=== PATIENT | male | born 1955 | race African-American/Black ===

== ENCOUNTER 2020-08-01 08:33 | Outpatient (CLI) | payer MEDICARE, MEDICAID | END 2020-08-01 08:34 | disposition home or self-care (01) | LOC: CSHWCC 08:33 | PROVIDERS: ATTEND Nurse Practitioner Family | DX: E11.621 Type 2 diabetes mellitus with foot ulcer (principal); L97.516 Non-pressure chronic ulcer of other part of right foot with bone involvement without evidence of necrosis | CPT/HCPCS: 82962; 97139; G0277; 36416 ==

== ENCOUNTER 2020-08-06 07:47 | Outpatient (CLI) | payer MEDICARE, MEDICAID | END 2020-08-06 07:48 | disposition home or self-care (01) | LOC: CSHWCC 07:47 | PROVIDERS: ATTEND Nurse Practitioner Family | DX: E11.621 Type 2 diabetes mellitus with foot ulcer (principal); L97.516 Non-pressure chronic ulcer of other part of right foot with bone involvement without evidence of necrosis | CPT/HCPCS: 82962; 97139; G0277; 36416 ==

== ENCOUNTER 2020-08-13 09:50 | Outpatient (CLI) | payer MEDICARE, MEDICAID | END 2020-08-13 09:51 | disposition home or self-care (01) | LOC: CSHWCC 09:50 | PROVIDERS: ATTEND Nurse Practitioner Family | DX: E11.621 Type 2 diabetes mellitus with foot ulcer (principal); L97.516 Non-pressure chronic ulcer of other part of right foot with bone involvement without evidence of necrosis | CPT/HCPCS: 36416; G0277 ==

== ENCOUNTER 2020-08-22 08:08 | Outpatient (CLI) | payer MEDICARE, MEDICAID | END 2020-08-22 08:09 | disposition home or self-care (01) | LOC: CSHWCC 08:08 | PROVIDERS: ATTEND Nurse Practitioner Family | DX: E11.621 Type 2 diabetes mellitus with foot ulcer (principal); L97.516 Non-pressure chronic ulcer of other part of right foot with bone involvement without evidence of necrosis | CPT/HCPCS: 36416; G0277 ==

== ENCOUNTER 2021-05-08 09:51 | Outpatient (CLI) | payer MEDICARE, MEDICAID | END 2021-05-08 09:52 | disposition home or self-care (01) | LOC: CSHWCC 09:51 | PROVIDERS: ATTEND Nurse Practitioner Family | DX: T81.89XD Other complications of procedures, not elsewhere classified, subsequent encounter (principal); I87.2 Venous insufficiency (chronic) (peripheral); E11.621 Type 2 diabetes mellitus with foot ulcer; E11.622 Type 2 diabetes mellitus with other skin ulcer; L97.403 Non-pressure chronic ulcer of unspecified heel and midfoot with necrosis of muscle; L97.413 Non-pressure chronic ulcer of right heel and midfoot with necrosis of muscle; L97.422 Non-pressure chronic ulcer of left heel and midfoot with fat layer exposed; L97.512 Non-pressure chronic ulcer of other part of right foot with fat layer exposed; L97.516 Non-pressure chronic ulcer of other part of right foot with bone involvement without evidence of necrosis; L97.522 Non-pressure chronic ulcer of other part of left foot with fat layer exposed; L98.499 Non-pressure chronic ulcer of skin of other sites with unspecified severity; I70.268 Atherosclerosis of native arteries of extremities with gangrene, other extremity; R60.0 Localized edema; I12.0 Hypertensive chronic kidney disease with stage 5 chronic kidney disease or end stage renal disease; E11.22 Type 2 diabetes mellitus with diabetic chronic kidney disease; N18.6 End stage renal disease; I89.0 Lymphedema, not elsewhere classified; E11.51 Type 2 diabetes mellitus with diabetic peripheral angiopathy without gangrene; E78.2 Mixed hyperlipidemia; I70.25 Atherosclerosis of native arteries of other extremities with ulceration; E11.69 Type 2 diabetes mellitus with other specified complication; M86.671 Other chronic osteomyelitis, right ankle and foot; M86.672 Other chronic osteomyelitis, left ankle and foot; B96.89 Other specified bacterial agents as the cause of diseases classified elsewhere; L08.9 Local infection of the skin and subcutaneous tissue, unspecified; E66.01 Morbid (severe) obesity due to excess calories; Z89.411 Acquired absence of right great toe | CPT/HCPCS: 29581; 97139; G0463; 99213 ==

== ENCOUNTER 2021-05-29 11:14 | Outpatient (CLI) | payer MEDICARE | END 2021-05-29 11:15 | disposition home or self-care (01) | LOC: CSHWCC 11:14 | PROVIDERS: ATTEND Nurse Practitioner Family | DX: L89.304 Pressure ulcer of unspecified buttock, stage 4 (principal); L89.610 Pressure ulcer of right heel, unstageable; L89.93 Pressure ulcer of unspecified site, stage 3; S31.30XD Unspecified open wound of scrotum and testes, subsequent encounter; E11.621 Type 2 diabetes mellitus with foot ulcer; L97.509 Non-pressure chronic ulcer of other part of unspecified foot with unspecified severity; E78.2 Mixed hyperlipidemia; E66.01 Morbid (severe) obesity due to excess calories; R60.0 Localized edema; I12.0 Hypertensive chronic kidney disease with stage 5 chronic kidney disease or end stage renal disease; N18.6 End stage renal disease; I70.25 Atherosclerosis of native arteries of other extremities with ulceration; I87.2 Venous insufficiency (chronic) (peripheral); L08.9 Local infection of the skin and subcutaneous tissue, unspecified; B96.89 Other specified bacterial agents as the cause of diseases classified elsewhere; I89.0 Lymphedema, not elsewhere classified; M86.671 Other chronic osteomyelitis, right ankle and foot; M86.672 Other chronic osteomyelitis, left ankle and foot; Z89.411 Acquired absence of right great toe; Z91.89 Other specified personal risk factors, not elsewhere classified | CPT/HCPCS: 11042; 97139; G0463; 99214 ==

== ENCOUNTER 2021-06-12 12:11 | Outpatient (CLI) | payer MEDICARE | END 2021-06-12 12:12 | disposition home or self-care (01) | LOC: CSHWCC 12:11 | PROVIDERS: ATTEND Nurse Practitioner Family | DX: L89.304 Pressure ulcer of unspecified buttock, stage 4 (principal); L89.610 Pressure ulcer of right heel, unstageable; L89.93 Pressure ulcer of unspecified site, stage 3; I87.2 Venous insufficiency (chronic) (peripheral); E11.621 Type 2 diabetes mellitus with foot ulcer; L97.509 Non-pressure chronic ulcer of other part of unspecified foot with unspecified severity; E11.69 Type 2 diabetes mellitus with other specified complication; I12.0 Hypertensive chronic kidney disease with stage 5 chronic kidney disease or end stage renal disease; E11.22 Type 2 diabetes mellitus with diabetic chronic kidney disease; N18.6 End stage renal disease; E11.51 Type 2 diabetes mellitus with diabetic peripheral angiopathy without gangrene; I70.25 Atherosclerosis of native arteries of other extremities with ulceration; I89.0 Lymphedema, not elsewhere classified; S31.30XD Unspecified open wound of scrotum and testes, subsequent encounter; M86.671 Other chronic osteomyelitis, right ankle and foot; M86.672 Other chronic osteomyelitis, left ankle and foot; R60.0 Localized edema; L08.9 Local infection of the skin and subcutaneous tissue, unspecified; E78.2 Mixed hyperlipidemia; B96.89 Other specified bacterial agents as the cause of diseases classified elsewhere; E66.01 Morbid (severe) obesity due to excess calories; Z89.411 Acquired absence of right great toe; Z91.89 Other specified personal risk factors, not elsewhere classified ==

== ENCOUNTER 2021-07-24 10:15 | Outpatient (CLI) | payer MEDICARE, MEDICAID | END 2021-07-24 10:16 | disposition home or self-care (01) | LOC: CSHWCC 10:15 | PROVIDERS: ATTEND Nurse Practitioner Family | DX: L89.304 Pressure ulcer of unspecified buttock, stage 4 (principal); R60.0 Localized edema; L89.610 Pressure ulcer of right heel, unstageable; L89.93 Pressure ulcer of unspecified site, stage 3 | CPT/HCPCS: 99214; G0463 ==

== ENCOUNTER 2021-09-29 17:35 | Emergency (ER) | payer MEDICARE | END 2021-09-29 19:01 | disposition home or self-care (01) | LOC: CSHERS 17:35 | DX: Z43.3 Encounter for attention to colostomy (principal); I13.2 Hypertensive heart and chronic kidney disease with heart failure and with stage 5 chronic kidney disease, or end stage renal disease; I50.9 Heart failure, unspecified; N18.6 End stage renal disease; E11.22 Type 2 diabetes mellitus with diabetic chronic kidney disease; Z87.891 Personal history of nicotine dependence | CPT/HCPCS: 99283 ==

== ENCOUNTER 2021-10-02 09:03 | Outpatient (CLI) | payer MEDICARE | END 2021-10-02 09:04 | disposition home or self-care (01) | LOC: CSHWCC 09:03 | PROVIDERS: ATTEND Nurse Practitioner Family | DX: L89.304 Pressure ulcer of unspecified buttock, stage 4 (principal); L89.610 Pressure ulcer of right heel, unstageable; L89.93 Pressure ulcer of unspecified site, stage 3; R60.0 Localized edema | CPT/HCPCS: 11042; 29581; G0463; 99213 ==

== ENCOUNTER 2021-10-21 13:46 | Emergency (ER) | payer MEDICARE, OTHER | END 2021-10-21 14:44 | disposition home or self-care (01) | LOC: CSHERS 13:46 | DX: K94.01 Colostomy hemorrhage (principal); E78.5 Hyperlipidemia, unspecified; E11.9 Type 2 diabetes mellitus without complications; I11.0 Hypertensive heart disease with heart failure; I50.9 Heart failure, unspecified; E03.9 Hypothyroidism, unspecified; Z87.891 Personal history of nicotine dependence | CPT/HCPCS: 99283 ==

== ENCOUNTER 2021-10-23 09:58 | Outpatient (CLI) | payer MEDICARE | END 2021-10-23 09:59 | disposition home or self-care (01) | LOC: CSHWCC 09:58 | PROVIDERS: ATTEND Nurse Practitioner Family | DX: L89.304 Pressure ulcer of unspecified buttock, stage 4 (principal); L89.610 Pressure ulcer of right heel, unstageable; L89.93 Pressure ulcer of unspecified site, stage 3; R60.0 Localized edema ==

== ENCOUNTER 2021-11-19 10:35 | Inpatient (IN) | payer MEDICARE ==
[2021-11-19] MEDS ORDERED: Fentanyl 100 MCG/2 ML VIAL ONE ×2 (11:49→13:48)
[2021-11-19 11:57] LABS: #Eosinphils 0.2 10x3/uL (0.0-0.5); #Monocytes 1.1 10x3/uL (0.0-1.1); #Neutrophils 7.7 10x3/uL (1.5-8.4); %Basophils 0.2 % (0.0-2.0); %Eosinophils 1.5 % (0.0-6.0); %Lymphocytes 16.9 % (18.0-47.0); %Monocytes 9.8 % (0.0-10.0); %Neutrophils 71.2 % (40.0-75.0); Hemoglobin 12.1 g/dL (13.5-17.5); Mean Corpuscular HGB CONC 30.9 g/dL (32.0-36.0); Mean Corpuscular Hemoglobin 27.2 pg (27.0-33.0); Mean Corpuscular Volume 88.1 fl (81.2-95.1); Mean Platelet Volume 9.8 fl (7.4-10.4); Platelet Count 183 10x3/uL (150-450); RBC Distribution Width 14.6 % (11.5-14.5); Red Blood Cell (RBC) Count 4.45 10x6/uL (4.32-5.72); White Blood Cell (WBC) Count 10.8 10x3/uL (3.5-10.5)
[2021-11-19 12:13] LABS: ALT (SGPT) 17 U/L (8-55); AST (SGOT) 15 U/L (5-34); Albumin 3.6 g/dL (3.4-4.8); Alkaline Phosphatase 134 U/L (40-110); Anion Gap 17 mmol/L (10-20); BUN (Urea Nitrogen) 52 mg/dL (8.4-25.7); Bilirubin, Total 0.3 mg/dL (0.2-1.2); Calc. Creatinine Clearance 0 mL/min (70-130); Calcium 9.8 mg/dL (7.8-10.44); Carbon Dioxide 24 mmol/L (23-31); Chloride 99 mmol/L (98-107); Estimated GFR 8; Globulin 4.3 g/dL (2.4-3.5); Glucose 146 mg/dL (80-115); Potassium 4.7 mmol/L (3.5-5.1); Protein, Total 7.9 g/dL (5.8-8.1); Sodium 135 mmol/L (136-145)
[2021-11-19] MEDS ORDERED: Piperacillin/Tazobactam 4.5 GM VIAL ONE (14:07)
[2021-11-19] MEDS ORDERED: Ondansetron PF 4 MG/2 ML Vial IVP PRN (14:33)
[2021-11-19] MEDS ORDERED: Ondansetron ODT 4 MG TAB PO PRN (14:33)
[2021-11-19] MEDS ORDERED: Acetaminophen 325 MG TAB PO PRN (14:33)
[2021-11-19] MEDS ORDERED: Acetaminophen 650 MG Suppository PR PRN (14:33)
[2021-11-19] MEDS ORDERED: Heparin 10,000 UNITS/ 10 ML VIAL SLOW IVP PRN (14:36)
[2021-11-19] MEDS ORDERED: Vancomycin 1 GM in Premix Bag 1 BAG IVPB SCH (15:00)
[2021-11-19] MEDS ORDERED: Morphine 2 MG/ML VIAL SLOW IVP PRN (16:57)
[2021-11-19] MEDS ORDERED: Morphine 4 MG/ML VIAL SLOW IVP PRN (17:16)
[2021-11-19] MEDS: HYDROcodone/Acetaminophen 5/325 mg Tablet PO PRN (21:58)
[2021-11-19] MEDS: Atorvastatin Calcium 10 MG TAB PO SCH (23:38)
[2021-11-19] MEDS: rOPINIRole HCl 0.25 MG TAB PO SCH (23:38)
[2021-11-19] MEDS: Midodrine HCl 2.5 MG TAB PO SCH (23:38)
[2021-11-19] MEDS: Cefepime 1 GM in Sodium Chloride 0.9% 100 ML IVPB SCH (23:39)
[2021-11-19] MEDS: metroNIDAZOLE 500 MG in Premix Bag 1 BAG IVPB SCH (23:39)
[2021-11-20] MEDS ORDERED: Vancomycin HCl 1 GM in Sodium Chloride 0.9% 250 ML 250 ML IVPB SCH (01:00)
[2021-11-20 04:44] LABS: #Eosinphils 0.2 10x3/uL (0.0-0.5); #Monocytes 0.8 10x3/uL (0.0-1.1); #Neutrophils 5.7 10x3/uL (1.5-8.4); %Basophils 0.1 % (0.0-2.0); %Eosinophils 2.1 % (0.0-6.0); %Lymphocytes 21.6 % (18.0-47.0); %Monocytes 9.6 % (0.0-10.0); %Neutrophils 66.4 % (40.0-75.0); Hemoglobin 10.6 g/dL (13.5-17.5); Mean Platelet Volume 10.1 fl (7.4-10.4); Platelet Count 153 10x3/uL (150-450); RBC Distribution Width 14.6 % (11.5-14.5); Red Blood Cell (RBC) Count 3.93 10x6/uL (4.32-5.72); White Blood Cell (WBC) Count 8.6 10x3/uL (3.5-10.5)
[2021-11-20] MEDS: HYDROcodone/Acetaminophen 5/325 mg Tablet PO PRN ×3 (05:00→21:10)
[2021-11-20] MEDS: metroNIDAZOLE 500 MG in Premix Bag 1 BAG IVPB SCH ×2 (05:00→18:17)
[2021-11-20 05:19] LABS: Anion Gap 16 mmol/L (10-20); BUN (Urea Nitrogen) 21 mg/dL (8.4-25.7); Calc. Creatinine Clearance 31 mL/min (70-130); Calcium 8.5 mg/dL (7.8-10.44); Carbon Dioxide 25 mmol/L (23-31); Chloride 99 mmol/L (98-107); Estimated GFR 16; Glucose 95 mg/dL (80-115); Sodium 136 mmol/L (136-145)
[2021-11-20] MEDS: Levothyroxine Sodium 25 MCG TAB PO SCH (05:36)
[2021-11-20] MEDS: rOPINIRole HCl 0.25 MG TAB PO SCH ×2 (09:47→21:11)
[2021-11-20] MEDS: Midodrine HCl 2.5 MG TAB PO SCH ×3 (09:47→21:11)
[2021-11-20] MEDS: Lantus 1000 UNITS/10 ML VIAL SC SCH (09:47)
[2021-11-20] MEDS: Aspirin 81 mg Enteric Coated Tablet PO SCH (09:47)
[2021-11-20] MEDS: Cefepime 1 GM in Sodium Chloride 0.9% 100 ML IVPB SCH (18:18)
[2021-11-20] MEDS: Atorvastatin Calcium 10 MG TAB PO SCH (21:11)
[2021-11-21] MEDS: Cefepime 1 GM in Sodium Chloride 0.9% 100 ML IVPB SCH (00:44)
[2021-11-21 04:41] LABS: Anion Gap 15 mmol/L (10-20); BUN (Urea Nitrogen) 36 mg/dL (8.4-25.7); Calc. Creatinine Clearance 20 mL/min (70-130); Calcium 8.6 mg/dL (7.8-10.44); Carbon Dioxide 25 mmol/L (23-31); Chloride 101 mmol/L (98-107); Estimated GFR 10; Glucose 120 mg/dL (80-115); Potassium 4.1 mmol/L (3.5-5.1); Sodium 137 mmol/L (136-145)
[2021-11-21 04:45] LABS: #Eosinphils 0.2 10x3/uL (0.0-0.5); #Monocytes 0.9 10x3/uL (0.0-1.1); #Neutrophils 5.5 10x3/uL (1.5-8.4); %Basophils 0.2 % (0.0-2.0); %Eosinophils 2.6 % (0.0-6.0); %Lymphocytes 21.2 % (18.0-47.0); %Monocytes 10.5 % (0.0-10.0); %Neutrophils 65.3 % (40.0-75.0); Hemoglobin 10.9 g/dL (13.5-17.5); Mean Corpuscular Hemoglobin 27.3 pg (27.0-33.0); Mean Platelet Volume 9.6 fl (7.4-10.4); Platelet Count 180 10x3/uL (150-450); RBC Distribution Width 14.6 % (11.5-14.5); White Blood Cell (WBC) Count 8.5 10x3/uL (3.5-10.5)
[2021-11-21] MEDS: metroNIDAZOLE 500 MG in Premix Bag 1 BAG IVPB SCH ×2 (04:59→17:53)
[2021-11-21] MEDS: Levothyroxine Sodium 25 MCG TAB PO SCH (04:59)
[2021-11-21 07:43] LABS: Vancomycin, Random 13.7 ug/mL (See Comment)
[2021-11-21] MEDS: rOPINIRole HCl 0.25 MG TAB PO SCH ×2 (08:54→21:19)
[2021-11-21] MEDS: Midodrine HCl 2.5 MG TAB PO SCH ×3 (08:54→21:19)
[2021-11-21] MEDS: Aspirin 81 mg Enteric Coated Tablet PO SCH (08:54)
[2021-11-21 14:49] VITALS: BMI 39.5
[2021-11-21] MEDS: Lantus 1000 UNITS/10 ML VIAL SC SCH (16:29)
[2021-11-21] MEDS ORDERED: Vancomycin Dialysis Sliding Scale (Wt > 99) FS SCH (17:00)
[2021-11-21] MEDS ORDERED: Vancomycin HCl 1 GM in Sodium Chloride 0.9% 250 ML 250 ML IVPB SCH (17:00)
[2021-11-21] MEDS: Atorvastatin Calcium 10 MG TAB PO SCH (21:19)
[2021-11-21] MEDS: HYDROcodone/Acetaminophen 5/325 mg Tablet PO PRN (21:25)
[2021-11-22] MEDS: Cefepime 1 GM in Sodium Chloride 0.9% 100 ML IVPB SCH (00:37)
[2021-11-22 04:00] LABS: #Eosinphils 0.3 10x3/uL (0.0-0.5); #Monocytes 0.9 10x3/uL (0.0-1.1); #Neutrophils 5.2 10x3/uL (1.5-8.4); %Basophils 0.4 % (0.0-2.0); %Eosinophils 3.2 % (0.0-6.0); %Lymphocytes 22.2 % (18.0-47.0); %Monocytes 10.6 % (0.0-10.0); %Neutrophils 63.4 % (40.0-75.0); Hemoglobin 10.8 g/dL (13.5-17.5); Mean Corpuscular HGB CONC 30.9 g/dL (32.0-36.0); Mean Corpuscular Hemoglobin 27.1 pg (27.0-33.0); Mean Corpuscular Volume 87.7 fl (81.2-95.1); Mean Platelet Volume 9.8 fl (7.4-10.4); Platelet Count 207 10x3/uL (150-450); RBC Distribution Width 14.5 % (11.5-14.5); Red Blood Cell (RBC) Count 3.98 10x6/uL (4.32-5.72); White Blood Cell (WBC) Count 8.2 10x3/uL (3.5-10.5)
[2021-11-22] MEDS: metroNIDAZOLE 500 MG in Premix Bag 1 BAG IVPB SCH ×2 (04:28→16:24)
[2021-11-22 04:45] LABS: Anion Gap 16 mmol/L (10-20); BUN (Urea Nitrogen) 20 mg/dL (8.4-25.7); Calc. Creatinine Clearance 29 mL/min (70-130); Calcium 8.6 mg/dL (7.8-10.44); Carbon Dioxide 24 mmol/L (23-31); Chloride 102 mmol/L (98-107); Estimated GFR 15; Glucose 117 mg/dL (80-115); Potassium 4.2 mmol/L (3.5-5.1); Sodium 138 mmol/L (136-145)
[2021-11-22] MEDS: Levothyroxine Sodium 25 MCG TAB PO SCH (06:42)
[2021-11-22] MEDS: rOPINIRole HCl 0.25 MG TAB PO SCH ×2 (10:01→21:54)
[2021-11-22] MEDS: Aspirin 81 mg Enteric Coated Tablet PO SCH (10:01)
[2021-11-22] MEDS: Lantus 1000 UNITS/10 ML VIAL SC SCH (10:01)
[2021-11-22] MEDS: Midodrine HCl 2.5 MG TAB PO SCH ×3 (10:01→21:54)
[2021-11-22 12:30] LABS: Hemoglobin A1c 5.5 % (4.0-6.0)
[2021-11-22] MEDS: Atorvastatin Calcium 10 MG TAB PO SCH (21:53)
[2021-11-22] MEDS: Melatonin 3 MG TAB PO SCH (21:53)
[2021-11-22] MEDS: Cephalexin 500 MG CAP PO SCH (21:54)
[2021-11-22] MEDS: Heparin 5,000 UNITS/ML VIAL SC SCH (21:54)
[2021-11-23] MEDS: Levothyroxine Sodium 25 MCG TAB PO SCH (05:45)
[2021-11-23 05:54] LABS: #Eosinphils 0.2 10x3/uL (0.0-0.5); #Monocytes 0.7 10x3/uL (0.0-1.1); #Neutrophils 4.8 10x3/uL (1.5-8.4); %Basophils 0.3 % (0.0-2.0); %Lymphocytes 24.3 % (18.0-47.0); %Monocytes 8.7 % (0.0-10.0); %Neutrophils 63.4 % (40.0-75.0); Hemoglobin 10.8 g/dL (13.5-17.5); Mean Corpuscular HGB CONC 31.9 g/dL (32.0-36.0); Mean Corpuscular Hemoglobin 27.7 pg (27.0-33.0); Mean Corpuscular Volume 86.9 fl (81.2-95.1); Mean Platelet Volume 9.2 fl (7.4-10.4); Platelet Count 213 10x3/uL (150-450); RBC Distribution Width 14.6 % (11.5-14.5); White Blood Cell (WBC) Count 7.6 10x3/uL (3.5-10.5)
[2021-11-23 06:08] LABS: ALT (SGPT) 7 U/L (8-55); AST (SGOT) 9 U/L (5-34); Albumin 2.7 g/dL (3.4-4.8); Alkaline Phosphatase 96 U/L (40-110); Anion Gap 15 mmol/L (10-20); BUN (Urea Nitrogen) 39 mg/dL (8.4-25.7); Bilirubin, Direct 0.2 mg/dL (0.1-0.3); Bilirubin, Total 0.3 mg/dL (0.2-1.2); Calc. Creatinine Clearance 20 mL/min (70-130); Calcium 8.9 mg/dL (7.8-10.44); Carbon Dioxide 24 mmol/L (23-31); Cardiac Risk 4.6 (Less than 4.5); Chloride 104 mmol/L (98-107); Cholesterol 114 mg/dl (< 200 Desired); Estimated GFR 10; Glucose 127 mg/dL (80-115); HDL Cholesterol 25 mg/dL (>60 Neg Risk); LDL Cholesterol, Calculated 74 mg/dL; Magnesium 1.7 mg/dL (1.6-2.6); Potassium 4.9 mmol/L (3.5-5.1); Protein, Total 6.5 g/dL (5.8-8.1); Sodium 138 mmol/L (136-145); Triglycerides 73 mg/dL (Less than 150)
[2021-11-23] MEDS: Heparin 5,000 UNITS/ML VIAL SC SCH ×3 (09:36→21:06)
[2021-11-23] MEDS: Folic Acid/Vit B Comp W-C PO SCH (09:36)
[2021-11-23] MEDS: Aspirin 81 mg Enteric Coated Tablet PO SCH (09:36)
[2021-11-23] MEDS: Famotidine 20 MG TAB PO SCH (09:36)
[2021-11-23] MEDS: rOPINIRole HCl 0.25 MG TAB PO SCH ×2 (09:36→21:05)
[2021-11-23] MEDS: Lantus 1000 UNITS/10 ML VIAL SC SCH (09:37)
[2021-11-23] MEDS: Atorvastatin Calcium 10 MG TAB PO SCH (21:05)
[2021-11-23] MEDS: Melatonin 3 MG TAB PO SCH (21:05)
[2021-11-23] MEDS: Cephalexin 500 MG CAP PO SCH (21:05)
[2021-11-24 04:15] LABS: #Eosinphils 0.3 10x3/uL (0.0-0.5); #Monocytes 0.6 10x3/uL (0.0-1.1); #Neutrophils 3.8 10x3/uL (1.5-8.4); %Basophils 0.5 % (0.0-2.0); %Eosinophils 3.8 % (0.0-6.0); %Lymphocytes 27.8 % (18.0-47.0); %Monocytes 9.5 % (0.0-10.0); %Neutrophils 58.2 % (40.0-75.0); Hemoglobin 10.5 g/dL (13.5-17.5); Mean Corpuscular HGB CONC 31.3 g/dL (32.0-36.0); Mean Corpuscular Hemoglobin 27.4 pg (27.0-33.0); Mean Corpuscular Volume 87.5 fl (81.2-95.1); Mean Platelet Volume 9.5 fl (7.4-10.4); Platelet Count 234 10x3/uL (150-450); RBC Distribution Width 14.4 % (11.5-14.5); Red Blood Cell (RBC) Count 3.83 10x6/uL (4.32-5.72); White Blood Cell (WBC) Count 6.5 10x3/uL (3.5-10.5)
[2021-11-24 04:33] LABS: Anion Gap 18 mmol/L (10-20); BUN (Urea Nitrogen) 54 mg/dL (8.4-25.7); Calc. Creatinine Clearance 16 mL/min (70-130); Calcium 8.9 mg/dL (7.8-10.44); Carbon Dioxide 22 mmol/L (23-31); Chloride 103 mmol/L (98-107); Estimated GFR 7; Glucose 126 mg/dL (80-115); Magnesium 1.7 mg/dL (1.6-2.6); Sodium 138 mmol/L (136-145)
[2021-11-24] MEDS: Levothyroxine Sodium 25 MCG TAB PO SCH (06:21)
[2021-11-24] MEDS ORDERED: Lantus 1000 UNITS/10 ML VIAL ONE ×2 (11:15)
[2021-11-24] MEDS: HYDROcodone/Acetaminophen 5/325 mg Tablet PO PRN ×2 (13:39→22:12)
[2021-11-24] MEDS: Famotidine 20 MG TAB PO SCH (13:42)
[2021-11-24] MEDS: Heparin 5,000 UNITS/ML VIAL SC SCH ×3 (13:42→22:05)
[2021-11-24] MEDS: Folic Acid/Vit B Comp W-C PO SCH (13:42)
[2021-11-24] MEDS: Aspirin 81 mg Enteric Coated Tablet PO SCH (13:42)
[2021-11-24] MEDS: Lantus 1000 UNITS/10 ML VIAL SC SCH (13:43)
[2021-11-24] MEDS: rOPINIRole HCl 0.25 MG TAB PO SCH ×2 (14:23→22:05)
[2021-11-24] MEDS ORDERED: Cephalexin 500 MG CAP PO SCH (15:00)
[2021-11-24] MEDS: Melatonin 3 MG TAB PO SCH (22:04)
[2021-11-24] MEDS: Atorvastatin Calcium 10 MG TAB PO SCH (22:04)
[2021-11-25 04:45] LABS: #Eosinphils 0.3 10x3/uL (0.0-0.5); #Monocytes 0.7 10x3/uL (0.0-1.1); #Neutrophils 3.5 10x3/uL (1.5-8.4); %Basophils 0.5 % (0.0-2.0); %Eosinophils 4.4 % (0.0-6.0); %Lymphocytes 29.7 % (18.0-47.0); %Monocytes 10.3 % (0.0-10.0); %Neutrophils 54.9 % (40.0-75.0); Hemoglobin 10.3 g/dL (13.5-17.5); Mean Corpuscular HGB CONC 31.3 g/dL (32.0-36.0); Mean Corpuscular Volume 86.4 fl (81.2-95.1); Mean Platelet Volume 9.8 fl (7.4-10.4); Platelet Count 212 10x3/uL (150-450); RBC Distribution Width 14.5 % (11.5-14.5); Red Blood Cell (RBC) Count 3.81 10x6/uL (4.32-5.72); White Blood Cell (WBC) Count 6.3 10x3/uL (3.5-10.5)
[2021-11-25 05:01] LABS: Anion Gap 17 mmol/L (10-20); BUN (Urea Nitrogen) 42 mg/dL (8.4-25.7); Calc. Creatinine Clearance 19 mL/min (70-130); Calcium 8.8 mg/dL (7.8-10.44); Carbon Dioxide 24 mmol/L (23-31); Chloride 101 mmol/L (98-107); Estimated GFR 9; Glucose 145 mg/dL (80-115); Magnesium 1.7 mg/dL (1.6-2.6); Sodium 137 mmol/L (136-145)
[2021-11-25] MEDS: Levothyroxine Sodium 25 MCG TAB PO SCH (06:16)
[2021-11-25] MEDS: Famotidine 20 MG TAB PO SCH (08:11)
[2021-11-25] MEDS: Aspirin 81 mg Enteric Coated Tablet PO SCH (08:12)
[2021-11-25] MEDS: Lantus 1000 UNITS/10 ML VIAL SC SCH ×2 (08:12→09:56)
[2021-11-25] MEDS: Folic Acid/Vit B Comp W-C PO SCH (08:12)
[2021-11-25] MEDS: rOPINIRole HCl 0.25 MG TAB PO SCH (08:12)
[2021-11-25] MEDS: Heparin 5,000 UNITS/ML VIAL SC SCH (09:56)
[2021-11-25 12:58] VITALS: BP 141/63; TEMP 97.9
== END 2021-11-25 14:17 | disposition home or self-care (01) | DRG 623 ==
LOC: CSHERS 10:35 → CSHTELE 16:01 → OBSVTOIN 16:01
PROVIDERS: ADMIT Internal Medicine; ATTEND Family Medicine
PROC: 5A1D70Z Performance of Urinary Filtration, Intermittent, Less than 6 Hours Per Day (ICD-10-PCS; 2021-11-19)
PROC: 5A1D70Z Performance of Urinary Filtration, Intermittent, Less than 6 Hours Per Day (ICD-10-PCS; 2021-11-19)
PROC: 0LBV0ZZ Excision of Right Foot Tendon, Open Approach (ICD-10-PCS; principal; 2021-11-21)
PROC: 5A1D70Z Performance of Urinary Filtration, Intermittent, Less than 6 Hours Per Day (ICD-10-PCS; 2021-11-21)
PROC: 5A1D70Z Performance of Urinary Filtration, Intermittent, Less than 6 Hours Per Day (ICD-10-PCS; 2021-11-24)
PROC: 5A1D70Z Performance of Urinary Filtration, Intermittent, Less than 6 Hours Per Day (ICD-10-PCS; 2021-11-24)
PROC: B51M1ZZ Fluoroscopy of Right Upper Extremity Veins using Low Osmolar Contrast (ICD-10-PCS; 2021-11-25)
DX: E11.621 Type 2 diabetes mellitus with foot ulcer (principal); E11.52 Type 2 diabetes mellitus with diabetic peripheral angiopathy with gangrene; N18.6 End stage renal disease; E03.9 Hypothyroidism, unspecified; I95.89 Other hypotension; I48.0 Paroxysmal atrial fibrillation; E11.51 Type 2 diabetes mellitus with diabetic peripheral angiopathy without gangrene; L97.519 Non-pressure chronic ulcer of other part of right foot with unspecified severity; E11.22 Type 2 diabetes mellitus with diabetic chronic kidney disease; E78.5 Hyperlipidemia, unspecified; I50.9 Heart failure, unspecified; D63.1 Anemia in chronic kidney disease; E66.01 Morbid (severe) obesity due to excess calories; I49.5 Sick sinus syndrome; Z20.822 Contact with and (suspected) exposure to COVID-19; Z95.810 Presence of automatic (implantable) cardiac defibrillator; Z90.49 Acquired absence of other specified parts of digestive tract; Z93.3 Colostomy status; Z88.0 Allergy status to penicillin; Z79.82 Long term (current) use of aspirin; Z79.899 Other long term (current) drug therapy; Z99.2 Dependence on renal dialysis; Z79.4 Long term (current) use of insulin; Z89.429 Acquired absence of other toe(s), unspecified side; Z89.029 Acquired absence of unspecified finger(s); Z98.890 Other specified postprocedural states; Z87.891 Personal history of nicotine dependence; Z68.39 Body mass index [BMI] 39.0-39.9, adult
CPT/HCPCS: 36415; 36416; 75820; 80048; 80053; 80061; 80076; 80202; 83036; 83735; 84443; 85025; 85652; 86140; 87070; 87076; 87077; 87186; 87205; 90935; 93005; 93010; 93970; 94760; 96374; 96376; 97139; G0257; J0692; J1644; J1815; J2543; J3010; J3370; J3490; J7050; U0003; U0005

== ENCOUNTER 2021-11-27 10:00 | Outpatient (CLI) | payer MEDICARE | END 2021-11-27 10:01 | disposition home or self-care (01) | LOC: CSHWCC 10:00 | PROVIDERS: ATTEND Nurse Practitioner Family | DX: L89.93 Pressure ulcer of unspecified site, stage 3 (principal); R60.0 Localized edema ==

== ENCOUNTER 2021-12-18 08:42 | Outpatient (CLI) | payer MEDICARE | END 2021-12-18 08:43 | disposition home or self-care (01) | LOC: CSHWCC 08:42 | PROVIDERS: ATTEND Nurse Practitioner Family | DX: L89.93 Pressure ulcer of unspecified site, stage 3 (principal); L89.154 Pressure ulcer of sacral region, stage 4; R60.0 Localized edema ==

== ENCOUNTER 2021-12-25 20:56 | Inpatient (IN) | payer MEDICARE ==
[2021-12-25] MEDS ORDERED: Ondansetron PF 4 MG/2 ML Vial IVP PRN (21:52)
[2021-12-25] MEDS ORDERED: Senokot S 8.6-50 MG TAB PO PRN (21:52)
[2021-12-25] MEDS ORDERED: Acetaminophen 325 MG TAB PO PRN (21:52)
[2021-12-25] MEDS ORDERED: Calcium Carbonate 500 MG ChewTAB PO PRN (21:52)
[2021-12-25] MEDS ORDERED: Dextrose 5% in Water 1,000 ML IV PRN (21:52)
[2021-12-25] MEDS ORDERED: Dextrose 50% Abboject 50 ML SYRINGE SLOW IVP PRN (21:52)
[2021-12-25 23:07] VITALS: BMI 39.4
[2021-12-25] MEDS: HYDROcodone/Acetaminophen 5/325 mg Tablet PO PRN (23:31)
[2021-12-26 06:31] LABS: #Eosinphils 0.1 10x3/uL (0.0-0.5); #Monocytes 0.8 10x3/uL (0.0-1.1); #Neutrophils 5.9 10x3/uL (1.5-8.4); %Basophils 0.3 % (0.0-2.0); %Eosinophils 1.6 % (0.0-6.0); %Lymphocytes 21.6 % (18.0-47.0); %Neutrophils 67.3 % (40.0-75.0); Hemoglobin 10.9 g/dL (13.5-17.5); Mean Corpuscular HGB CONC 31.2 g/dL (32.0-36.0); Mean Corpuscular Volume 86.6 fl (81.2-95.1); Mean Platelet Volume 10.7 fl (7.4-10.4); Platelet Count 123 10x3/uL (150-450); RBC Distribution Width 15.5 % (11.5-14.5); Red Blood Cell (RBC) Count 4.03 10x6/uL (4.32-5.72); White Blood Cell (WBC) Count 8.8 10x3/uL (3.5-10.5)
[2021-12-26 06:38] LABS: Vancomycin, Random 17.3 ug/mL (See Comment)
[2021-12-26 06:40] LABS: Anion Gap 13 mmol/L (10-20); BUN (Urea Nitrogen) 37 mg/dL (8.4-25.7); CRP (Inflammatory) 6.55 mg/dL (= or < 0.5); Calc. Creatinine Clearance 20 mL/min (70-130); Calcium 9.5 mg/dL (7.8-10.44); Carbon Dioxide 23 mmol/L (23-31); Chloride 105 mmol/L (98-107); Estimated GFR 10; Glucose 116 mg/dL (80-115); Potassium 4.4 mmol/L (3.5-5.1); Sodium 137 mmol/L (136-145)
[2021-12-26] MEDS: Levothyroxine Sodium 25 MCG TAB PO SCH (06:55)
[2021-12-26] MEDS ORDERED: Vancomycin Dialysis Sliding Scale (Wt > 99) FS SCH (07:00)
[2021-12-26] MEDS ORDERED: ARGININE PO SCH (09:00)
[2021-12-26] MEDS ORDERED: [UNRECOGNIZED DRUG - OTHER] PO SCH (09:00)
[2021-12-26] MEDS ORDERED: Vancomycin 1 GM in Premix Bag 1 BAG IVPB SCH (09:00)
[2021-12-26] MEDS ORDERED: GLUTAMINE PO SCH (09:00)
[2021-12-26] MEDS: Heparin 5,000 UNITS/ML VIAL SC SCH ×3 (09:44→20:48)
[2021-12-26] MEDS: Lantus 1000 UNITS/10 ML VIAL SC SCH (09:50)
[2021-12-26] MEDS: Aspirin 81 mg Enteric Coated Tablet PO SCH (09:50)
[2021-12-26] MEDS: Ascorbic Acid 500 mg Chewable Tablet PO SCH ×2 (09:50→20:47)
[2021-12-26] MEDS: Folic Acid/Vit B Comp W-C PO SCH (09:50)
[2021-12-26] MEDS: Fluticasone Propionate Nasal Spray 16 gm Bottle NASAL SCH (09:50)
[2021-12-26] MEDS: Famotidine 20 MG TAB PO SCH (09:50)
[2021-12-26] MEDS: rOPINIRole HCl 0.25 MG TAB PO SCH ×2 (09:51→20:47)
[2021-12-26] MEDS: Multivitamin W/ Minerals 1 TAB PO SCH (09:51)
[2021-12-26] MEDS ORDERED: Heparin 10,000 UNITS/ 10 ML VIAL SLOW IVP PRN (11:31)
[2021-12-26] MEDS ORDERED: Vancomycin HCl 750 MG in Sodium Chloride 0.9% 250 ML 250 ML IVPB SCH (17:00)
[2021-12-26] MEDS: Melatonin 3 MG TAB PO SCH (20:47)
[2021-12-26] MEDS: HYDROcodone/Acetaminophen 5/325 mg Tablet PO PRN (20:47)
[2021-12-26] MEDS: Cefepime 0.5 GM in Sodium Chloride 0.9% 100 ML IVPB SCH (20:47)
[2021-12-26] MEDS: Atorvastatin Calcium 10 MG TAB PO SCH (20:47)
[2021-12-27] MEDS: Levothyroxine Sodium 25 MCG TAB PO SCH (06:42)
[2021-12-27 06:54] LABS: Anion Gap 13 mmol/L (10-20); BUN (Urea Nitrogen) 20 mg/dL (8.4-25.7); CRP (Inflammatory) 7.12 mg/dL (= or < 0.5); Calc. Creatinine Clearance 32 mL/min (70-130); Carbon Dioxide 25 mmol/L (23-31); Chloride 101 mmol/L (98-107); Estimated GFR 17; Glucose 91 mg/dL (80-115); Sodium 135 mmol/L (136-145)
[2021-12-27 06:55] LABS: #Eosinphils 0.2 10x3/uL (0.0-0.5); #Monocytes 0.7 10x3/uL (0.0-1.1); #Neutrophils 3.8 10x3/uL (1.5-8.4); %Basophils 0.3 % (0.0-2.0); %Eosinophils 2.5 % (0.0-6.0); %Lymphocytes 30.1 % (18.0-47.0); %Monocytes 10.9 % (0.0-10.0); %Neutrophils 56.1 % (40.0-75.0); Hemoglobin 10.8 g/dL (13.5-17.5); Mean Corpuscular HGB CONC 30.9 g/dL (32.0-36.0); Mean Corpuscular Hemoglobin 26.5 pg (27.0-33.0); Mean Corpuscular Volume 85.7 fl (81.2-95.1); Mean Platelet Volume 10.2 fl (7.4-10.4); Platelet Count 141 10x3/uL (150-450); RBC Distribution Width 15.4 % (11.5-14.5); Red Blood Cell (RBC) Count 4.07 10x6/uL (4.32-5.72); White Blood Cell (WBC) Count 6.7 10x3/uL (3.5-10.5)
[2021-12-27] MEDS ORDERED: EPOETIN ALFA-EPBX (ESRD) 4,000 UNIT/ML VIAL SC SCH (09:00)
[2021-12-27] MEDS: Aspirin 81 mg Enteric Coated Tablet PO SCH (10:15)
[2021-12-27] MEDS: HYDROcodone/Acetaminophen 5/325 mg Tablet PO PRN ×2 (10:15→21:40)
[2021-12-27] MEDS: Ascorbic Acid 500 mg Chewable Tablet PO SCH ×2 (10:15→21:30)
[2021-12-27] MEDS: Multivitamin W/ Minerals 1 TAB PO SCH (10:15)
[2021-12-27] MEDS: Famotidine 20 MG TAB PO SCH (10:15)
[2021-12-27] MEDS: rOPINIRole HCl 0.25 MG TAB PO SCH ×2 (10:16→21:30)
[2021-12-27] MEDS: Lantus 1000 UNITS/10 ML VIAL SC SCH (10:19)
[2021-12-27] MEDS: Heparin 5,000 UNITS/ML VIAL SC SCH ×3 (10:19→21:55)
[2021-12-27] MEDS: Fluticasone Propionate Nasal Spray 16 gm Bottle NASAL SCH (10:19)
[2021-12-27] MEDS: Folic Acid/Vit B Comp W-C PO SCH (10:21)
[2021-12-27] MEDS: Melatonin 3 MG TAB PO SCH (21:31)
[2021-12-27] MEDS: Atorvastatin Calcium 10 MG TAB PO SCH (21:31)
[2021-12-27] MEDS: Cefepime 0.5 GM in Sodium Chloride 0.9% 100 ML IVPB SCH (21:31)
[2021-12-27] MEDS: HumaLOG 300 UNITS/3 ML VIAL SC PRN (21:34)
[2021-12-28 05:23] LABS: Anion Gap 15 mmol/L (10-20); BUN (Urea Nitrogen) 39 mg/dL (8.4-25.7); Calc. Creatinine Clearance 21 mL/min (70-130); Calcium 9.1 mg/dL (7.8-10.44); Carbon Dioxide 23 mmol/L (23-31); Chloride 103 mmol/L (98-107); Estimated GFR 11; Glucose 88 mg/dL (80-115); Phosphorus 2.6 mg/dL (2.3-4.7); Potassium 4.3 mmol/L (3.5-5.1); Sodium 137 mmol/L (136-145)
[2021-12-28 05:29] LABS: #Eosinphils 0.3 10x3/uL (0.0-0.5); #Monocytes 0.6 10x3/uL (0.0-1.1); #Neutrophils 3.3 10x3/uL (1.5-8.4); %Basophils 0.3 % (0.0-2.0); %Eosinophils 4.1 % (0.0-6.0); %Lymphocytes 34.3 % (18.0-47.0); %Monocytes 8.8 % (0.0-10.0); %Neutrophils 52.3 % (40.0-75.0); Hemoglobin 10.9 g/dL (13.5-17.5); Mean Corpuscular HGB CONC 31.2 g/dL (32.0-36.0); Mean Corpuscular Hemoglobin 26.8 pg (27.0-33.0); Mean Platelet Volume 10.5 fl (7.4-10.4); Platelet Count 165 10x3/uL (150-450); RBC Distribution Width 15.3 % (11.5-14.5); Red Blood Cell (RBC) Count 4.06 10x6/uL (4.32-5.72); White Blood Cell (WBC) Count 6.4 10x3/uL (3.5-10.5)
[2021-12-28] MEDS: Levothyroxine Sodium 25 MCG TAB PO SCH (06:00)
[2021-12-28] MEDS: Fluticasone Propionate Nasal Spray 16 gm Bottle NASAL SCH (09:08)
[2021-12-28] MEDS: Heparin 5,000 UNITS/ML VIAL SC SCH ×3 (09:08→21:52)
[2021-12-28] MEDS: rOPINIRole HCl 0.25 MG TAB PO SCH ×2 (09:09→21:52)
[2021-12-28] MEDS: Multivitamin W/ Minerals 1 TAB PO SCH (09:09)
[2021-12-28] MEDS: Aspirin 81 mg Enteric Coated Tablet PO SCH (09:09)
[2021-12-28] MEDS: Famotidine 20 MG TAB PO SCH (09:09)
[2021-12-28] MEDS: Lantus 1000 UNITS/10 ML VIAL SC SCH (09:09)
[2021-12-28] MEDS: Folic Acid/Vit B Comp W-C PO SCH (09:09)
[2021-12-28] MEDS: Ascorbic Acid 500 mg Chewable Tablet PO SCH ×2 (09:09→21:53)
[2021-12-28] MEDS: HYDROcodone/Acetaminophen 5/325 mg Tablet PO PRN (09:09)
[2021-12-28] MEDS: HumaLOG 300 UNITS/3 ML VIAL SC PRN (16:24)
[2021-12-28] MEDS: Melatonin 3 MG TAB PO SCH (21:52)
[2021-12-28] MEDS: Atorvastatin Calcium 10 MG TAB PO SCH (21:53)
[2021-12-28] MEDS: Cefepime 0.5 GM in Sodium Chloride 0.9% 100 ML IVPB SCH (21:53)
[2021-12-29 04:57] LABS: #Eosinphils 0.3 10x3/uL (0.0-0.5); #Monocytes 0.6 10x3/uL (0.0-1.1); #Neutrophils 3.1 10x3/uL (1.5-8.4); %Basophils 0.3 % (0.0-2.0); %Lymphocytes 38.3 % (18.0-47.0); %Neutrophils 48.2 % (40.0-75.0); Hemoglobin 10.9 g/dL (13.5-17.5); Mean Corpuscular HGB CONC 30.8 g/dL (32.0-36.0); Mean Corpuscular Hemoglobin 26.2 pg (27.0-33.0); Mean Corpuscular Volume 85.1 fl (81.2-95.1); Mean Platelet Volume 10.4 fl (7.4-10.4); Platelet Count 190 10x3/uL (150-450); RBC Distribution Width 15.7 % (11.5-14.5); Red Blood Cell (RBC) Count 4.16 10x6/uL (4.32-5.72); White Blood Cell (WBC) Count 6.5 10x3/uL (3.5-10.5)
[2021-12-29 05:12] LABS: Anion Gap 13 mmol/L (10-20); BUN (Urea Nitrogen) 50 mg/dL (8.4-25.7); Calc. Creatinine Clearance 17 mL/min (70-130); Calcium 9.6 mg/dL (7.8-10.44); Carbon Dioxide 25 mmol/L (23-31); Chloride 102 mmol/L (98-107); Estimated GFR 8; Glucose 106 mg/dL (80-115); Potassium 4.3 mmol/L (3.5-5.1); Sodium 136 mmol/L (136-145)
[2021-12-29] MEDS: Levothyroxine Sodium 25 MCG TAB PO SCH (05:50)
[2021-12-29 08:32] LABS: Vancomycin, Random 15.4 ug/mL (See Comment)
[2021-12-29] MEDS: Multivitamin W/ Minerals 1 TAB PO SCH (09:12)
[2021-12-29] MEDS: Ascorbic Acid 500 mg Chewable Tablet PO SCH ×2 (09:12→21:21)
[2021-12-29] MEDS: rOPINIRole HCl 0.25 MG TAB PO SCH ×2 (09:12→21:21)
[2021-12-29] MEDS: Aspirin 81 mg Enteric Coated Tablet PO SCH (09:12)
[2021-12-29] MEDS: Famotidine 20 MG TAB PO SCH (09:13)
[2021-12-29] MEDS: Folic Acid/Vit B Comp W-C PO SCH (09:13)
[2021-12-29] MEDS: Fluticasone Propionate Nasal Spray 16 gm Bottle NASAL SCH (09:13)
[2021-12-29] MEDS: Lantus 1000 UNITS/10 ML VIAL SC SCH (09:13)
[2021-12-29] MEDS: Heparin 5,000 UNITS/ML VIAL SC SCH ×3 (09:13→21:21)
[2021-12-29] MEDS: HYDROcodone/Acetaminophen 5/325 mg Tablet PO PRN (09:13)
[2021-12-29] MEDS ORDERED: Vancomycin HCl 750 MG in Sodium Chloride 0.9% 250 ML 250 ML IVPB SCH (17:00)
[2021-12-29] MEDS: Cefepime 0.5 GM in Sodium Chloride 0.9% 100 ML IVPB SCH (21:17)
[2021-12-29] MEDS: HumaLOG 300 UNITS/3 ML VIAL SC PRN (21:20)
[2021-12-29] MEDS: Melatonin 3 MG TAB PO SCH (21:21)
[2021-12-29] MEDS: Atorvastatin Calcium 10 MG TAB PO SCH (21:21)
[2021-12-30] MEDS: Levothyroxine Sodium 25 MCG TAB PO SCH (06:07)
[2021-12-30 07:12] VITALS: BP 119/58; TEMP 97.8
[2021-12-30] MEDS: Aspirin 81 mg Enteric Coated Tablet PO SCH (08:49)
[2021-12-30] MEDS: Ascorbic Acid 500 mg Chewable Tablet PO SCH (08:49)
[2021-12-30] MEDS: rOPINIRole HCl 0.25 MG TAB PO SCH (08:50)
[2021-12-30] MEDS: Folic Acid/Vit B Comp W-C PO SCH (08:50)
[2021-12-30] MEDS: Multivitamin W/ Minerals 1 TAB PO SCH (08:50)
[2021-12-30] MEDS: Famotidine 20 MG TAB PO SCH (08:50)
[2021-12-30] MEDS: Fluticasone Propionate Nasal Spray 16 gm Bottle NASAL SCH (08:51)
[2021-12-30] MEDS: Heparin 5,000 UNITS/ML VIAL SC SCH (08:55)
== END 2021-12-30 13:35 | disposition home health service (06) | DRG 871 ==
LOC: CSHERS 20:56 → CSHTELE 22:59
PROVIDERS: ADMIT Student in an Organized Health Care Education/Training Program; ATTEND Family Medicine
PROC: 3E03329 Introduction of Other Anti-infective into Peripheral Vein, Percutaneous Approach (ICD-10-PCS; principal; 2021-12-25)
PROC: 5A1D70Z Performance of Urinary Filtration, Intermittent, Less than 6 Hours Per Day (ICD-10-PCS; 2021-12-26)
DX: A41.9 Sepsis, unspecified organism (principal); N18.6 End stage renal disease; I13.2 Hypertensive heart and chronic kidney disease with heart failure and with stage 5 chronic kidney disease, or end stage renal disease; I50.32 Chronic diastolic (congestive) heart failure; N25.81 Secondary hyperparathyroidism of renal origin; L03.115 Cellulitis of right lower limb; E11.628 Type 2 diabetes mellitus with other skin complications; E11.621 Type 2 diabetes mellitus with foot ulcer; L97.519 Non-pressure chronic ulcer of other part of right foot with unspecified severity; L89.159 Pressure ulcer of sacral region, unspecified stage; E78.5 Hyperlipidemia, unspecified; I48.91 Unspecified atrial fibrillation; E11.51 Type 2 diabetes mellitus with diabetic peripheral angiopathy without gangrene; E11.22 Type 2 diabetes mellitus with diabetic chronic kidney disease; Z96.1 Presence of intraocular lens; R53.81 Other malaise; L08.9 Local infection of the skin and subcutaneous tissue, unspecified; E03.9 Hypothyroidism, unspecified; D63.1 Anemia in chronic kidney disease; Z60.2 Problems related to living alone; Z20.822 Contact with and (suspected) exposure to COVID-19; E66.01 Morbid (severe) obesity due to excess calories; I95.9 Hypotension, unspecified; I25.5 Ischemic cardiomyopathy; E11.40 Type 2 diabetes mellitus with diabetic neuropathy, unspecified; Z89.411 Acquired absence of right great toe; Z79.4 Long term (current) use of insulin; Z88.0 Allergy status to penicillin; Z95.828 Presence of other vascular implants and grafts; Z99.2 Dependence on renal dialysis; Z95.0 Presence of cardiac pacemaker; Z79.82 Long term (current) use of aspirin; Z79.890 Hormone replacement therapy; Z79.899 Other long term (current) drug therapy; Z68.39 Body mass index [BMI] 39.0-39.9, adult; Z82.49 Family history of ischemic heart disease and other diseases of the circulatory system; Z87.891 Personal history of nicotine dependence; Z93.3 Colostomy status; Z98.890 Other specified postprocedural states; Z90.49 Acquired absence of other specified parts of digestive tract; Z98.49 Cataract extraction status, unspecified eye; Z89.421 Acquired absence of other right toe(s); Z86.73 Personal history of transient ischemic attack (TIA), and cerebral infarction without residual deficits; Z74.01 Bed confinement status
CPT/HCPCS: 36415; 36416; 74280; 80048; 80202; 83605; 83970; 84100; 85025; 85652; 86140; 90935; 97139; G0257; J0692; J1644; J3370; J3490; J7050; Q5105

== ENCOUNTER 2022-01-06 08:41 | Outpatient (CLI) | payer MEDICARE, MEDICAID | END 2022-01-06 08:42 | disposition home or self-care (01) | LOC: CSHWCC 08:41 | PROVIDERS: ATTEND Nurse Practitioner Family | DX: L89.93 Pressure ulcer of unspecified site, stage 3 (principal); R60.0 Localized edema ==

== ENCOUNTER 2022-01-15 09:06 | Outpatient (CLI) | payer MEDICARE ==
[2022-01-15 10:05] LABS: Hemoglobin 12.6 g/dL (13.5-17.5); Mean Corpuscular HGB CONC 30.2 g/dL (32.0-36.0); Mean Corpuscular Volume 89.5 fl (81.2-95.1); Mean Platelet Volume 10.3 fl (7.4-10.4); Platelet Count 139 10x3/uL (150-450); RBC Distribution Width 16.5 % (11.5-14.5); Red Blood Cell (RBC) Count 4.66 10x6/uL (4.32-5.72); White Blood Cell (WBC) Count 5.2 10x3/uL (3.5-10.5)
[2022-01-15 10:16] LABS: Anion Gap 15 mmol/L (10-20); BUN (Urea Nitrogen) 28 mg/dL (8.4-25.7); Calc. Creatinine Clearance 0 mL/min (70-130); Calcium 9.7 mg/dL (7.8-10.44); Carbon Dioxide 26 mmol/L (23-31); Chloride 104 mmol/L (98-107); Estimated GFR 12; Glucose 124 mg/dL (80-115); Potassium 4.7 mmol/L (3.5-5.1); Sodium 140 mmol/L (136-145)
== END 2022-01-15 09:07 | disposition home or self-care (01) ==
LOC: CSHLAB 09:06
PROVIDERS: ATTEND Surgery
DX: Z01.812 Encounter for preprocedural laboratory examination (principal); Z20.822 Contact with and (suspected) exposure to COVID-19
CPT/HCPCS: 80048; 85027; 87811

== ENCOUNTER 2022-01-15 09:15 | Inpatient (IN) | payer MEDICARE ==
[2022-01-20 07:56] LABS: Anion Gap 14 mmol/L (10-20); BUN (Urea Nitrogen) 28 mg/dL (8.4-25.7); Calc. Creatinine Clearance 23 mL/min (70-130); Calcium 9.7 mg/dL (7.8-10.44); Carbon Dioxide 27 mmol/L (23-31); Chloride 102 mmol/L (98-107); Estimated GFR 11; Glucose 102 mg/dL (80-115); Potassium 4.7 mmol/L (3.5-5.1); Sodium 138 mmol/L (136-145)
[2022-01-20] MEDS ORDERED: ceFOXitin 1 GM VIAL ONE (08:01)
[2022-01-20] MEDS ORDERED: PROPOFOL 20 ML ONE (08:16)
[2022-01-20] MEDS ORDERED: Fentanyl 100 MCG/2 ML VIAL ONE ×2 (08:17→11:52)
[2022-01-20] MEDS ORDERED: Rocuronium Bromide 10 MG/ML (10ML VIAL) ONE (08:17)
[2022-01-20] MEDS ORDERED: Lidocaine 1% PF 5 ML VIAL ONE (08:17)
[2022-01-20] MEDS ORDERED: ePHEDrine Sulfate 50 MG/10 ML VIAL ONE (08:38)
[2022-01-20] MEDS ORDERED: PHENYLEPHRINE-NS 100 MCG/ML 10 ML SYRINGE ONE (08:44)
[2022-01-20] MEDS ORDERED: Ondansetron PF 4 MG/2 ML Vial ONE (10:07)
[2022-01-20] MEDS ORDERED: Glycopyrrolate 0.2 MG/ML 5 ML SYRINGE ONE (10:28)
[2022-01-20] MEDS ORDERED: Phenylephrine 10 MG/ML VIAL ONE (11:30)
[2022-01-20] MEDS ORDERED: Promethazine HCl 25 MG/ML VIAL IM PRN (12:31)
[2022-01-20] MEDS ORDERED: hydrALAZINE 20 MG/ML VIAL SLOW IVP PRN (12:31)
[2022-01-20] MEDS ORDERED: Ondansetron PF 4 MG/2 ML Vial IVP PRN (12:31)
[2022-01-20] MEDS ORDERED: Insulin Regular 300 UNITS/3 ML VIAL SC PRN (12:43)
[2022-01-20] MEDS: Sodium Chloride 0.9% 1,000 ML IV SCH ×2 (13:50→21:36)
[2022-01-20] MEDS: HYDROcodone/Acetaminophen 7.5/325 mg Tablet PO PRN ×2 (14:40→21:34)
[2022-01-20] MEDS: Ketorolac Tromethamine 30 MG/ML VIAL IVP SCH ×2 (17:36→23:57)
[2022-01-20] MEDS ORDERED: GLUTAMINE PO SCH (21:00)
[2022-01-20] MEDS ORDERED: ARGININE PO SCH (21:00)
[2022-01-20] MEDS ORDERED: [UNRECOGNIZED DRUG - OTHER] PO SCH (21:00)
[2022-01-20] MEDS: rOPINIRole HCl 0.25 MG TAB PO SCH (21:34)
[2022-01-20] MEDS: Famotidine/PF 20 mg/2ml Vial SLOW IVP SCH (21:35)
[2022-01-20] MEDS: Ascorbic Acid 500 mg Chewable Tablet PO SCH (21:35)
[2022-01-20] MEDS: Melatonin 3 MG TAB PO SCH (21:35)
[2022-01-21 04:25] LABS: #Eosinphils 0.1 10x3/uL (0.0-0.5); #Monocytes 0.5 10x3/uL (0.0-1.1); #Neutrophils 4.8 10x3/uL (1.5-8.4); %Basophils 0.3 % (0.0-2.0); %Lymphocytes 22.3 % (18.0-47.0); %Monocytes 7.6 % (0.0-10.0); %Neutrophils 67.7 % (40.0-75.0); Hemoglobin 11.3 g/dL (13.5-17.5); Mean Corpuscular HGB CONC 31.3 g/dL (32.0-36.0); Mean Corpuscular Hemoglobin 27.2 pg (27.0-33.0); Mean Platelet Volume 10.2 fl (7.4-10.4); Platelet Count 100 10x3/uL (150-450); RBC Distribution Width 15.8 % (11.5-14.5); Red Blood Cell (RBC) Count 4.15 10x6/uL (4.32-5.72); White Blood Cell (WBC) Count 7.1 10x3/uL (3.5-10.5)
[2022-01-21 04:34] LABS: Anion Gap 14 mmol/L (10-20); BUN (Urea Nitrogen) 39 mg/dL (8.4-25.7); Calc. Creatinine Clearance 18 mL/min (70-130); Calcium 8.3 mg/dL (7.8-10.44); Carbon Dioxide 24 mmol/L (23-31); Chloride 104 mmol/L (98-107); Estimated GFR 8; Glucose 151 mg/dL (80-115); Potassium 5.2 mmol/L (3.5-5.1); Sodium 137 mmol/L (136-145)
[2022-01-21] MEDS: Ketorolac Tromethamine 30 MG/ML VIAL IVP SCH ×4 (05:43→23:54)
[2022-01-21] MEDS: Sodium Chloride 0.9% 1,000 ML IV SCH ×3 (06:46→21:47)
[2022-01-21] MEDS ORDERED: Heparin 10,000 UNITS/ 10 ML VIAL SLOW IVP PRN (09:39)
[2022-01-21] MEDS: Ascorbic Acid 500 mg Chewable Tablet PO SCH ×2 (11:17→20:19)
[2022-01-21] MEDS: rOPINIRole HCl 0.25 MG TAB PO SCH ×2 (11:17→20:19)
[2022-01-21] MEDS ORDERED: HYDROcodone/Acetaminophen 7.5/325 mg Tablet PO PRN (12:33)
[2022-01-21 17:32] VITALS: BMI 38.5
[2022-01-21] MEDS: Famotidine/PF 20 mg/2ml Vial SLOW IVP SCH (20:18)
[2022-01-21] MEDS: Melatonin 3 MG TAB PO SCH (21:53)
[2022-01-22] MEDS: Sodium Chloride 0.9% 1,000 ML IV SCH (04:40)
[2022-01-22] MEDS: Ketorolac Tromethamine 30 MG/ML VIAL IVP SCH (05:36)
[2022-01-22] MEDS: Ascorbic Acid 500 mg Chewable Tablet PO SCH (08:54)
[2022-01-22] MEDS: rOPINIRole HCl 0.25 MG TAB PO SCH (09:33)
[2022-01-22 11:40] VITALS: BP 81/49; TEMP 98.1
== END 2022-01-22 12:10 | disposition home or self-care (01) | DRG 329 ==
LOC: CSHERHOLD 01-20 06:08 → CSHTELE 01-20 12:04
PROVIDERS: ADMIT Surgery; ATTEND Surgery
PROC: 0DBE0ZZ Excision of Large Intestine, Open Approach (ICD-10-PCS; principal; 2022-01-20)
PROC: 0WQF0ZZ Repair Abdominal Wall, Open Approach (ICD-10-PCS; 2022-01-20)
PROC: 5A1D70Z Performance of Urinary Filtration, Intermittent, Less than 6 Hours Per Day (ICD-10-PCS; 2022-01-21)
DX: Z43.3 Encounter for attention to colostomy (principal); N18.6 End stage renal disease; I12.0 Hypertensive chronic kidney disease with stage 5 chronic kidney disease or end stage renal disease; E11.22 Type 2 diabetes mellitus with diabetic chronic kidney disease; E78.5 Hyperlipidemia, unspecified; I25.10 Atherosclerotic heart disease of native coronary artery without angina pectoris; E11.621 Type 2 diabetes mellitus with foot ulcer; L97.509 Non-pressure chronic ulcer of other part of unspecified foot with unspecified severity; D69.6 Thrombocytopenia, unspecified; R53.81 Other malaise; E66.01 Morbid (severe) obesity due to excess calories; E87.5 Hyperkalemia; D63.1 Anemia in chronic kidney disease; I95.9 Hypotension, unspecified; Z20.822 Contact with and (suspected) exposure to COVID-19; Z95.5 Presence of coronary angioplasty implant and graft; Z90.49 Acquired absence of other specified parts of digestive tract; Z79.899 Other long term (current) drug therapy; Z98.890 Other specified postprocedural states; Z87.898 Personal history of other specified conditions; Z88.0 Allergy status to penicillin; Z88.6 Allergy status to analgesic agent; Z99.2 Dependence on renal dialysis; Z68.38 Body mass index [BMI] 38.0-38.9, adult
CPT/HCPCS: 36415; 36416; 80048; 85025; 90935; 94760; G0257; J0694; J1644; J1885; J2370; J2405; J2704; J3010; J7050; S0028

== ENCOUNTER 2022-01-27 08:51 | Outpatient (CLI) | payer MEDICARE | END 2022-01-27 08:52 | disposition home or self-care (01) | LOC: CSHWCC 08:51 | PROVIDERS: ATTEND Preventive Medicine Undersea and Hyperbaric Medicine | DX: L89.93 Pressure ulcer of unspecified site, stage 3 (principal); T81.89XD Other complications of procedures, not elsewhere classified, subsequent encounter; R60.0 Localized edema | CPT/HCPCS: 29581; 97139; G0463; 99213 ==

== ENCOUNTER 2022-02-17 09:50 | Outpatient (CLI) | payer MEDICARE | END 2022-02-17 09:51 | disposition home or self-care (01) | LOC: CSHWCC 09:50 | PROVIDERS: ATTEND Preventive Medicine Undersea and Hyperbaric Medicine | DX: L89.93 Pressure ulcer of unspecified site, stage 3 (principal); T81.89XD Other complications of procedures, not elsewhere classified, subsequent encounter; R60.0 Localized edema | CPT/HCPCS: 29581 ==

== ENCOUNTER 2022-03-17 08:55 | Outpatient (CLI) | payer MEDICARE | END 2022-03-17 08:56 | disposition home or self-care (01) | LOC: CSHWCC 08:55 | PROVIDERS: ATTEND Nurse Practitioner Family | DX: L89.93 Pressure ulcer of unspecified site, stage 3 (principal); R60.0 Localized edema | CPT/HCPCS: 29581 ==

== ENCOUNTER 2022-04-28 10:39 | Outpatient (CLI) | payer MEDICARE | END 2022-04-28 10:40 | disposition home or self-care (01) | LOC: CSHWCC 10:39 | PROVIDERS: ATTEND Nurse Practitioner Family | DX: L89.93 Pressure ulcer of unspecified site, stage 3 (principal); R60.0 Localized edema | CPT/HCPCS: 29581 ==

== ENCOUNTER 2022-05-26 09:12 | Outpatient (CLI) | payer MEDICARE | END 2022-05-26 09:13 | disposition home or self-care (01) | LOC: CSHWCC 09:12 | PROVIDERS: ATTEND Nurse Practitioner Family | DX: L89.93 Pressure ulcer of unspecified site, stage 3 (principal); R60.0 Localized edema | CPT/HCPCS: 99213; G0463 ==

== ENCOUNTER 2022-05-26 10:23 | Outpatient (CLI) | payer MEDICARE | END 2022-05-26 10:24 | disposition home or self-care (01) | LOC: CSHRAD 10:23 | PROVIDERS: ATTEND Psychiatry & Neurology Neurology | DX: G25.81 Restless legs syndrome (principal); R53.1 Weakness; M51.36 Other intervertebral disc degeneration, lumbar region | CPT/HCPCS: 72110 ==

== ENCOUNTER 2022-06-30 10:04 | Outpatient (CLI) | payer MEDICARE | END 2022-06-30 10:05 | disposition home or self-care (01) | LOC: CSHWCC 10:04 | PROVIDERS: ATTEND Nurse Practitioner Family | DX: R60.0 Localized edema (principal) ==

== ENCOUNTER 2022-07-23 15:32 | Emergency (ER) | payer MEDICARE ==
[2022-07-23 16:18] LABS: #Eosinphils 0.2 10x3/uL (0.0-0.5); #Monocytes 0.7 10x3/uL (0.0-1.1); #Neutrophils 2.5 10x3/uL (1.5-8.4); %Basophils 0.5 % (0.0-2.0); %Eosinophils 2.7 % (0.0-6.0); %Monocytes 11.7 % (0.0-10.0); %Neutrophils 38.9 % (40.0-75.0); Hemoglobin 11.1 g/dL (13.5-17.5); Mean Corpuscular Hemoglobin 27.5 pg (27.0-33.0); Mean Corpuscular Volume 91.6 fl (81.2-95.1); Mean Platelet Volume 10.9 fl (7.4-10.4); Platelet Count 156 10x3/uL (150-450); RBC Distribution Width 12.7 % (11.5-14.5); Red Blood Cell (RBC) Count 4.04 10x6/uL (4.32-5.72); White Blood Cell (WBC) Count 6.4 10x3/uL (3.5-10.5)
[2022-07-23 16:28] LABS: ALT (SGPT) 22 U/L (8-55); AST (SGOT) 20 U/L (5-34); Albumin 3.8 g/dL (3.4-4.8); Alkaline Phosphatase 151 U/L (40-110); Anion Gap 16 mmol/L (10-20); BUN (Urea Nitrogen) 30 mg/dL (8.4-25.7); Bilirubin, Total 0.3 mg/dL (0.2-1.2); Calc. Creatinine Clearance 0 mL/min (70-130); Calcium 9.6 mg/dL (7.8-10.44); Carbon Dioxide 26 mmol/L (23-31); Chloride 101 mmol/L (98-107); Estimated GFR 10; Glucose 160 mg/dL (80-115); Potassium 4.3 mmol/L (3.5-5.1); Protein, Total 7.8 g/dL (5.8-8.1); Sodium 139 mmol/L (136-145)
== END 2022-07-23 17:50 | disposition home or self-care (01) ==
LOC: CSHERS 15:32
DX: I13.2 Hypertensive heart and chronic kidney disease with heart failure and with stage 5 chronic kidney disease, or end stage renal disease (principal); E11.22 Type 2 diabetes mellitus with diabetic chronic kidney disease; N18.6 End stage renal disease; I50.9 Heart failure, unspecified; E78.5 Hyperlipidemia, unspecified; E03.9 Hypothyroidism, unspecified; F17.210 Nicotine dependence, cigarettes, uncomplicated; Z99.2 Dependence on renal dialysis; Z79.899 Other long term (current) drug therapy
CPT/HCPCS: 80053; 85025; 93005

== ENCOUNTER 2022-07-28 09:55 | Outpatient (CLI) | payer MEDICARE | END 2022-07-28 09:56 | disposition home or self-care (01) | LOC: CSHWCC 09:55 | PROVIDERS: ATTEND Nurse Practitioner Family | DX: R60.0 Localized edema (principal); E11.621 Type 2 diabetes mellitus with foot ulcer; L97.412 Non-pressure chronic ulcer of right heel and midfoot with fat layer exposed | CPT/HCPCS: 29581; 97139; G0463; 99213 ==

== ENCOUNTER 2022-09-01 10:38 | Outpatient (CLI) | payer MEDICARE | END 2022-09-01 10:39 | disposition home or self-care (01) | LOC: CSHWCC 10:38 | PROVIDERS: ATTEND Nurse Practitioner Family | DX: E11.621 Type 2 diabetes mellitus with foot ulcer (principal); L97.412 Non-pressure chronic ulcer of right heel and midfoot with fat layer exposed ==

== ENCOUNTER 2022-10-01 15:14 | Emergency (ER) | payer MEDICARE ==
[2022-10-01 16:09] LABS: #Eosinphils 0.2 10x3/uL (0.0-0.5); #Neutrophils 3.7 10x3/uL (1.5-8.4); %Basophils 0.3 % (0.0-2.0); %Eosinophils 2.3 % (0.0-6.0); %Lymphocytes 26.8 % (18.0-47.0); %Monocytes 14.6 % (0.0-10.0); %Neutrophils 55.7 % (40.0-75.0); Hemoglobin 11.8 g/dL (13.5-17.5); Mean Corpuscular HGB CONC 30.6 g/dL (32.0-36.0); Mean Corpuscular Hemoglobin 27.6 pg (27.0-33.0); Mean Platelet Volume 9.8 fl (7.4-10.4); Platelet Count 143 10x3/uL (150-450); RBC Distribution Width 13.5 % (11.5-14.5); Red Blood Cell (RBC) Count 4.28 10x6/uL (4.32-5.72); White Blood Cell (WBC) Count 6.6 10x3/uL (3.5-10.5)
[2022-10-01 16:18] LABS: ALT (SGPT) 17 U/L (8-55); AST (SGOT) 14 U/L (5-34); Albumin 3.8 g/dL (3.4-4.8); Alkaline Phosphatase 141 U/L (40-110); Anion Gap 19 mmol/L (10-20); BUN (Urea Nitrogen) 44 mg/dL (8.4-25.7); Bilirubin, Total 0.6 mg/dL (0.2-1.2); CK (CPK) 96 U/L (30-200); Calc. Creatinine Clearance 0 mL/min (70-130); Calcium 9.7 mg/dL (7.8-10.44); Carbon Dioxide 26 mmol/L (23-31); Chloride 96 mmol/L (98-107); Estimated GFR 9; Globulin 4.2 g/dL (2.4-3.5); Glucose 142 mg/dL (80-115); Potassium 4.6 mmol/L (3.5-5.1); Sodium 136 mmol/L (136-145)
[2022-10-01] MEDS ORDERED: Vancomycin 1 GM VIAL ONE (16:44)
[2022-10-01] MEDS ORDERED: Acetaminophen/Codeine 30-300mg Tablet ONE (16:44)
== END 2022-10-01 19:37 | disposition home or self-care (01) ==
LOC: CSHERS 15:14
DX: L97.519 Non-pressure chronic ulcer of other part of right foot with unspecified severity (principal); I13.2 Hypertensive heart and chronic kidney disease with heart failure and with stage 5 chronic kidney disease, or end stage renal disease; E11.22 Type 2 diabetes mellitus with diabetic chronic kidney disease; N18.6 End stage renal disease; I50.9 Heart failure, unspecified; E78.00 Pure hypercholesterolemia, unspecified; E03.9 Hypothyroidism, unspecified; I25.10 Atherosclerotic heart disease of native coronary artery without angina pectoris; F17.210 Nicotine dependence, cigarettes, uncomplicated; Z99.2 Dependence on renal dialysis; Z95.0 Presence of cardiac pacemaker; Z79.82 Long term (current) use of aspirin; Z79.4 Long term (current) use of insulin; Z79.899 Other long term (current) drug therapy
CPT/HCPCS: 36416; 80053; 82550; 83605; 85025; 86140; 96365; 96366; J3370

== ENCOUNTER 2022-10-06 11:13 | Outpatient (CLI) | payer MEDICARE | END 2022-10-06 11:14 | disposition home or self-care (01) | LOC: CSHWCC 11:13 | PROVIDERS: ATTEND Nurse Practitioner Family | DX: E11.621 Type 2 diabetes mellitus with foot ulcer (principal); L97.412 Non-pressure chronic ulcer of right heel and midfoot with fat layer exposed | CPT/HCPCS: 11042; 99212; G0463 ==

== ENCOUNTER 2022-10-06 12:04 | Emergency (ER) | payer MEDICARE ==
[2022-10-06 12:59] LABS: #Eosinphils 0.2 10x3/uL (0.0-0.5); #Monocytes 0.8 10x3/uL (0.0-1.1); #Neutrophils 4.9 10x3/uL (1.5-8.4); %Basophils 0.4 % (0.0-2.0); %Eosinophils 2.5 % (0.0-6.0); %Lymphocytes 27.7 % (18.0-47.0); %Monocytes 9.3 % (0.0-10.0); %Neutrophils 59.9 % (40.0-75.0); Hemoglobin 11.5 g/dL (13.5-17.5); Mean Corpuscular HGB CONC 30.5 g/dL (32.0-36.0); Mean Corpuscular Hemoglobin 27.7 pg (27.0-33.0); Mean Corpuscular Volume 90.8 fl (81.2-95.1); Mean Platelet Volume 9.8 fl (7.4-10.4); Platelet Count 195 10x3/uL (150-450); RBC Distribution Width 13.2 % (11.5-14.5); Red Blood Cell (RBC) Count 4.15 10x6/uL (4.32-5.72); White Blood Cell (WBC) Count 8.1 10x3/uL (3.5-10.5)
[2022-10-06 13:15] LABS: Anion Gap 19 mmol/L (10-20); BUN (Urea Nitrogen) 39 mg/dL (8.4-25.7); Calc. Creatinine Clearance 0 mL/min (70-130); Carbon Dioxide 25 mmol/L (23-31); Chloride 98 mmol/L (98-107); Potassium 4.6 mmol/L (3.5-5.1); Sodium 137 mmol/L (136-145)
[2022-10-06 13:16] LABS: ALT (SGPT) 30 U/L (8-55); AST (SGOT) 25 U/L (5-34); Albumin 3.7 g/dL (3.4-4.8); Alkaline Phosphatase 150 U/L (40-110); Bilirubin, Total 0.4 mg/dL (0.2-1.2); Calcium 9.9 mg/dL (7.8-10.44); Estimated GFR 9; Globulin 4.5 g/dL (2.4-3.5); Glucose 185 mg/dL (80-115); Protein, Total 8.2 g/dL (5.8-8.1)
[2022-10-06] MEDS ORDERED: Vancomycin 1.5 GRAM/300 ML BAG 1.5 GM in Premix Bag 1 BAG IVPB SCH (13:45)
== END 2022-10-06 16:29 | disposition short-term general hospital (02) ==
LOC: CSHERS 12:04
DX: M86.8X7 Other osteomyelitis, ankle and foot (principal); E11.621 Type 2 diabetes mellitus with foot ulcer; L97.529 Non-pressure chronic ulcer of other part of left foot with unspecified severity; I13.2 Hypertensive heart and chronic kidney disease with heart failure and with stage 5 chronic kidney disease, or end stage renal disease; E11.22 Type 2 diabetes mellitus with diabetic chronic kidney disease; N18.6 End stage renal disease; I50.9 Heart failure, unspecified; F17.210 Nicotine dependence, cigarettes, uncomplicated; Z99.2 Dependence on renal dialysis
CPT/HCPCS: 36415; 80053; 83605; 85025; 87040; 93005; J3370

== ENCOUNTER 2022-10-29 08:21 | Outpatient (CLI) | payer MEDICARE | END 2022-10-29 08:22 | disposition home or self-care (01) | LOC: CSHWCC 08:21 | PROVIDERS: ATTEND Nurse Practitioner Family | DX: T81.89XD Other complications of procedures, not elsewhere classified, subsequent encounter (principal); E11.621 Type 2 diabetes mellitus with foot ulcer; L97.514 Non-pressure chronic ulcer of other part of right foot with necrosis of bone; R60.0 Localized edema | CPT/HCPCS: 11042; 29581 ×2; 97139; G0463; 99213 ==

== ENCOUNTER 2022-12-24 09:56 | Outpatient (CLI) | payer MEDICARE | END 2022-12-24 09:57 | disposition home or self-care (01) | LOC: CSHWCC 09:56 | PROVIDERS: ATTEND Nurse Practitioner Family | DX: R60.9 Edema, unspecified (principal); T81.89XD Other complications of procedures, not elsewhere classified, subsequent encounter | CPT/HCPCS: 29581; 97597 ==

== ENCOUNTER 2023-01-21 09:55 | Outpatient (CLI) | payer MEDICARE | END 2023-01-21 09:56 | disposition home or self-care (01) | LOC: CSHWCC 09:55 | PROVIDERS: ATTEND Nurse Practitioner Family | DX: T81.89XD Other complications of procedures, not elsewhere classified, subsequent encounter (principal); R60.0 Localized edema | CPT/HCPCS: 11042; 29581 ==

== ENCOUNTER 2023-02-23 09:12 | Outpatient (CLI) | payer MEDICARE | END 2023-02-23 09:13 | disposition home or self-care (01) | LOC: CSHWCC 09:12 | PROVIDERS: ATTEND Preventive Medicine Undersea and Hyperbaric Medicine | DX: T81.89XD Other complications of procedures, not elsewhere classified, subsequent encounter (principal) | CPT/HCPCS: 29581 ==

== ENCOUNTER 2023-07-15 09:35 | Outpatient (CLI) | payer MEDICARE | END 2023-07-15 09:36 | disposition home or self-care (01) | LOC: CSHCT 09:35 | PROVIDERS: ATTEND Psychiatry & Neurology Neurology | DX: R27.0 Ataxia, unspecified (principal); I67.89 Other cerebrovascular disease; I63.81 Other cerebral infarction due to occlusion or stenosis of small artery | CPT/HCPCS: 70450 ==